=== PATIENT | male | born 2000 | race Hispanic/Latino ===

== ENCOUNTER 2022-10-20 09:59 | Emergency (ER) | payer OTHER, SELFPAY ==
[2022-10-20 10:15] VITALS: BP 133/72; PULSE 109; RESP 18; TEMP 37.1; O2SAT 99
[2022-10-20] MEDS: ACETAMINOPHEN 500 MG TABLET 1000 MG PO (11:20)
--- NOTE | 2022-10-20 11:25 | ED.GENADULT ---
HPI - General Adult General Chief complaint: Fever Stated complaint: Fevers, [place], sorethroat Time Seen by Provider: 10/20/22 11:01 Source: RN notes reviewed History of Present Illness HPI narrative: Patient presents emergency room from home for sore throat. Patient states that 2 weeks ago he had been ill for approximately 5 days he states that that has improved over the last weekend and been feeling well on Saturday and Saturday states that Saturday began to extraneously sore throat there is associated with a subjective fever. States that it does hurt to swallow he states he has had an intermittent frontal headache as well he denies any measured fevers he denies any nasal congestion chest pain shortness of breath cough abdominal pain nausea vomiting or any other symptoms. States that he took ibuprofen at 2 AM this morning Related Data Allergies Allergy/AdvReac Type Severity Reaction Status Date / Time No Known Allergies Allergy Verified 10/20/22 10:01 Review of Systems Review of Systems: Gen.: Report subjective fevers Eyes: Denies eye pain or visual change ENT: See HPI Respiratory: Denies shortness of breath or cough CV: Denies chest pain or palpitations GI: Denies abdominal pain nausea, emesis or diarrhea Musculoskeletal: Denies back pain or muscle pain Neuro: Reports intermittent frontal headache Skin: Denies rash Except as documented, all other systems reviewed and negative [facility] Past Medical History Medical History (Updated 10/20/22 @ 12:17 by Michael Hoyt DO) Patient denies significant medical history Social History Social History (Updated 10/20/22 @ 11:28 by Michael Hoyt DO) Smoking status: Never smoker Exam Narrative: APPEARANCE: No acute distress, nontoxic, resting in bed EYES: EOMI HEENT: Normocephalic, atraumatic, TMs clear bilaterally, nares patent oral mucosa moist erythema the posterior pharynx and bilateral tonsils with small amount of whitish exudate over bilateral tonsils tonsils 2+ uvula midline tolerating own secretions RESPIRATORY: No respiratory distress Clear to auscultation bilaterally with no rhonchi wheezing or rales. CARDIOVASCULAR: Regular rate and rhythm without murmurs rubs or gallops. ABDOMINAL: Soft, nontender, nondistended, no rebound or guarding MUSCULOSKELETAl: Moves all extremities. No clubbing, cyanosis or edema. NEURO: Awake and alert. Following commands, speech normal, no focal deficits SKIN:: Warm, dry. No rashes lesions or abrasions PSYCHIATRIC: Normal affect/mood, Course Course Emergency Course: Discussed with patient results of workup and diagnosis. Discussed need for follow-up with primary care, proper use of medication, and reasons to return to the emergency department. Patient understands and agrees to current treatment plan Vital Signs Vital signs: Vital Signs Temperature 98.7 F 10/20/22 10:15 Pulse Rate 109 H 10/20/22 10:15 Respiratory Rate 18 10/20/22 10:15 Blood Pressure 133/72 10/20/22 10:15 Pulse Oximetry 99 10/20/22 10:15 Oxygen Delivery Room Air 10/20/22 10:15 Temperature 98.7 F 10/20/22 10:15 Pulse Rate 109 H 10/20/22 10:15 Respiratory Rate 18 10/20/22 10:15 Blood Pressure 133/72 10/20/22 10:15 Pulse Oximetry 99 10/20/22 10:15 Oxygen Delivery Room Air 10/20/22 10:15 Medical Decision Making [facility] Narrative Medical decision making narrative: Patient presents with sore throat mild headache subjective fevers for the past 3 days starting October 17. The patient did test positive for strep here with findings consistent with strep. He had felt bad over a week and a half ago and he is also positive for COVID on his visit today I suspect that his COVID was will cause him to feel bad a week and a half ago I will hold Paxlovid at this time as the patient has no risk factors and symptoms began over 48 hours ago discussed with patient in agreement Vital Signs Vital Signs: Vital Signs Temperature
[2022-10-20 11:51] LABS: Strep Group A RT-PCR DETECTED (Negative)
[2022-10-20] MEDS: AMOXICILLIN 500 MG CAPSULE PO (12:05)
[2022-10-20 12:08] LABS: Influenza A QL RT-PCR Negative (Negative); Influenza B QL RT-PCR Negative (Negative); SARS-CoV-2 RNA PCR Positive
[2022-10-20 12:38] VITALS: BP 128/70; PULSE 100; RESP 17; TEMP 36.6; O2SAT 98
== END 2022-10-20 12:35 | disposition home or self-care (01) ==
PROVIDERS: Emergency Provider Emergency Medicine; PCP Family Medicine
DX: U07.1 COVID-19 (principal); J02.0 Streptococcal pharyngitis
CPT/HCPCS: 87636; 87651; 99283; A9270